=== PATIENT | male | born 1970 | race Hispanic/Latino ===

== ENCOUNTER 2018-05-26 07:29 | Day surgery (SDC) | payer OTHER ==
[~2018-05-26 07:29] MED LIST: ANCEF/STERILE WATER 2 GM/20 ML 2 GM/20 ML SYRINGE IV NR
[2018-05-26 08:35] LABS: Basophils % (Auto) 0.5 % (0.0-1.8); Eosinophils # (Auto) 0.1 K/mm3 (0.0-0.4); Eosinophils % (Auto) 1.7 % (0.0-4.3); Lymphocytes # (Auto) 1.7 K/mm3 (1.2-5.4); Lymphocytes % (Auto) 32.3 % (13.4-35.0); Mean Corpuscular HGB Conc 35 % (32-34); Mean Corpuscular Hemoglobin 32 pg (28-32); Mean Corpuscular Volume 91 fl (84-94); Monocytes # (Auto) 0.4 K/mm3 (0.0-0.8); Monocytes % (Auto) 8.1 % (0.0-7.3); Platelet Count 155 K/mm3 (140-440); Red Blood Count 4.74 M/mm3 (3.65-5.03); Red Cell Distribution Width 13.8 % (13.2-15.2)
[2018-05-26 08:45] LABS: INR 1.08 (0.87-1.13)
[2018-05-26 08:47] LABS: BUN/Creatinine Ratio 24; Blood Urea Nitrogen 26 mg/dL (9-20); Calcium 9.9 mg/dL (8.4-10.2); Hemolysis Index 11
[2018-05-26] MEDS: NACL 0.9% 1000 ML 1,000 ML IV SCH ×2 (08:53→11:00)
[2018-05-26] MEDS ORDERED: SUBLIMAZE ONE ×3 (10:21→11:46)
[2018-05-26] MEDS ORDERED: ANCEF/STERILE WATER 2 GM/20 ML 2 GM/20 ML SYRINGE IV ONE (10:22)
[2018-05-26] MEDS ORDERED: HEPARIN/NS 5000 UNIT/500ML(CATH LAB) 1,500 ML IR ONE (10:22)
[2018-05-26] MEDS ORDERED: HEPARIN 10,000 UNITS/10 ML ONE (10:23)
[2018-05-26] MEDS: VERSED ONE ×2 (11:03→11:07)
[2018-05-26] MEDS: SUBLIMAZE ONE ×2 (11:07→11:21)
[2018-05-26] MEDS ORDERED: VERSED ONE ×2 (11:13→11:46)
[2018-05-26] MEDS: XYLOCAINE 2% INFILTRATI ONE ×2 (11:13→11:19)
--- NOTE | 2018-05-26 12:06 | Short Stay Summary ---
Short Stay Documentation Date of service: 05/26/18 Narrative H&P: 48-year-old male with post-thrombotic syndrome, and venous compression who presents for treatment. - History Principal diagnosis: Venous compression, post thrombotic syndrome H&P: obtained from office - Allergies and Medications Current Medications: Allergies No Known Allergies Allergy (Verified 05/26/18 08:20) Home Medications Medication Instructions Recorded Confirmed Last Taken Type Apixaban [Eliquis] 5 mg PO DAILY 05/26/18 05/26/18 05/26/18 History 5mg Active Medications Cefazolin Sodium (Ancef/Sterile Water 2 Gm/20 Ml) 2 gm in 20 mls @ 80 mls/hr IV PREOP NR; Protocol Stop: 05/26/18 23:59 Last Admin: 05/26/18 11:03 Dose: 20 mls Sodium Chloride (Nacl 0.9% 1000 Ml) 1,000 mls @ 42 mls/hr IV DIRECT ZACHARIAH Last Admin: 05/26/18 11:00 Dose: 42 mls/hr - Physical exam General appearance: no acute distress Lungs: Normal air movement Gastrointestinal: normal Extremities: normal temperature, normal color, abnormal (edema) - Brief post op/procedure progress note Date of procedure: 05/26/18 Pre-op diagnosis: Post thrombotic syndrome, venous compression, venous insuffiency Post-op diagnosis: same Procedure: IVUS of both lower extremity veins Angioplasty of the left common iliac vein and external iliac vein Venography Anesthesia: local (w/ conscious sedation) Surgeon: DALI CASEY Estimated blood loss: minimal Condition: stable - Hospital course Hospital course: Tolerated procedure well. Ready for discharge in 2 hrs. - Disposition Condition at discharge: Stable Disposition: [id number] TO HOME OR SELFCARE - Discharge Diagnoses (1) Compression of vein Status: Acute (2) Post-thrombotic syndrome Status: Acute (3) Venous insufficiency (chronic) (peripheral) Status: Acute Short Stay Discharge Plan Activity: advance as tolerated (do not exercise for 1 week, then can return to prior activities) Weight Bearing Status: Weight Bear as Tolerated (do not excercise for 1 week, then can return to prior activities) Diet: regular Wound: keep clean and dry, other (take off compression bandage tomorrow am ; continue to take anticoagulation) Follow up with: PRIMARY CARE, [Primary Care Provider] - 7 Days
--- NOTE | 2018-05-26 12:07 | Operative Report ---
Operative Report Operative Report: EXAM: 1. Ultrasound-guided access of the left common femoral vein. 2. Ultrasound-guided access of the right proximal superficial femoral vein. 3. Venography of the bilateral lower extremities and IVC. 4. Selection of the IVC, left common iliac vein, left external iliac vein, and left common femoral vein with intravascular ultrasound evaluation. 5. Selection of the IVC, right common iliac vein, right external iliac vein, and right common femoral vein with intravascular ultrasound evaluation. 6. Angioplasty of the left common and external iliac vein with a 12 mm x 60 mm angioplasty balloon. DATE: 05/26/18 [employer] OPERATOR: DALI CASEY MD INDICATION: This 48-year-old male with multiple prior deep venous thrombus episodes with post-thrombotic syndrome, venous insufficiency, and venous compression who presents for treatment. MEDICATIONS: Please see nursing report for full details. DEVICES: 12 mm x 60 mm angioplasty balloon Intravascular ultrasound CONTRAST: Please see laboratory coordinator report for full details. PROCEDURE: The risks, benefits, and alternatives were discussed with the patient; written informed consent was obtained. The groins were prepped and draped in a sterile fashion. Ultrasound was used to evaluate the left superficial femoral vein which was occluded throughout most of its course and diminutive in size. The left common femoral vein was patent. Under direct ultrasound guidance, left common femoral vein was accessed with a 21-gauge micro-puncture needle. 0.018 inch wire was passed into the IVC. The needle was exchanged for transitional dilator. Wire was exchanged for 0.035 inch wire. Transitional dilator was exchanged for a 5 English sheath, and then upsized to an 8 English sheath. Ultrasound was used to evaluate the right superficial femoral vein which was partially duplicated. It was patent. The mid and lower superficial femoral vein were occluded. Under direct ultrasound guidance, the right proximal superficial femoral vein was accessed with a 21-gauge micropuncture needle. 0.01 and inch wire was passed into the IVC. The needle was exchanged for a transitional dilator. Wire was exchanged for 0.035 inch wire. Transitional dilator was exchanged for a 5 English sheath and then upsized to an 8 English sheath. Digital subtraction angiography was performed of the left lower extremity demonstrating patency of the left common femoral vein, but irregularity of the upper portion of the external iliac vein and lower portion of the left common iliac vein with mild luminal narrowing and patency of the IVC. Digital subtraction angiography of the right lower extremity demonstrated patency of the right common femoral vein with mild to moderate compression of the upper portion of the right external iliac vein. The right common iliac vein is patent. The IVC was patent. Intravascular ultrasound was then used to select the IVC, left common iliac vein , left external iliac vein, and left common femoral vein. Intravascular ultrasound was then used to select the IVC, right common iliac vein, right external iliac vein, and right common femoral vein. Intravascular ultrasound demonstrated 12 mm x 60 mm angioplasty balloon was then used to perform angioplasty of the left common iliac vein and external iliac vein with a five-minute inflation. Digital subtraction angiography demonstrated improved appearance with minimal residual narrowing. Intravascular ultrasound demonstrated luminal gain with decreased scar in this region, but persistent venous compression. 12 mm x 60 mm angioplasty balloon was then used to perform angioplasty of the right external iliac vein, but the balloon was able to move freely demonstrating that this was a venous compressive issue. I decided not to stent this region. All wires, catheters, and sheaths were removed. Pressure was held until hemostasis was achieved. FINDINGS: Please see procedure note above. IMPRESSION: 1. Successful ultrasound-guided access of the bilateral lower extremity venous systems. 2. Successful venography of the lower extremities and IVC. 3. Successful selection and intravascular ultrasound of the IVC, bilateral common iliac veins, bilateral external iliac veins, and bilateral common femoral veins. 4. Successful angioplasty of the left common iliac vein and external iliac vein.
[2018-05-26 13:17] VITALS: BP 125/79
== END 2018-05-26 13:43 | disposition home or self-care (01) ==
LOC: CATHLABREC 07:29
PROVIDERS: ATTEND Radiology Diagnostic Radiology
DX: I87.1 Compression of vein (principal); I87.002 Postthrombotic syndrome without complications of left lower extremity; Z79.01 Long term (current) use of anticoagulants; Z86.711 Personal history of pulmonary embolism; Z86.718 Personal history of other venous thrombosis and embolism; Z98.890 Other specified postprocedural states
CPT/HCPCS: 36415; 37248; 37249; 37252; 37253; 76937; 80048; 85025; 85610; 99156; 99157; C1753; C1769; J0690; J1644; J2250; J3010; J7030; Q9967